=== PATIENT | male | born 1975 | race Caucasian/White ===

== ENCOUNTER 2020-11-18 04:32 | Emergency (ER) | payer OTHER, SELFPAY ==
--- OUTSIDE RECORDS SUMMARY | 2020-11-18 04:35 | XMS REPORT | Continuity of Care Document ---
:1975 Author Organization [facility] t Address [address] [place] [address] Care Team Providers Name Role Phone Long Duncan MD Attending Clinician Problems This patient has no known problems. Allergies, Adverse Reactions, Alerts This patient has no known allergies or adverse reactions. Medications This patient has no known medications. Procedures This patient has no known procedures. Encounters Start End Encounter Admission Attending Care Care Encounter Source Date/Time Date/Time Type Type Clinicians Facility Department ID 2020-07-26 2020-07-26 Office LIS Duncan [id number] 13:46:56 14:26:56 Visit Jonah Torres [id number] [place] [id number] Michela [phone] nal 092 Building Results This patient has no known results.
[2020-11-18] MEDS ORDERED: ONDANSETRON 4 MG/2 ML VIAL ONE (05:18)
[2020-11-18] MEDS ORDERED: MORPHINE 4 MG/ML SYR ONE (05:18)
[2020-11-18 05:34] LABS: Absolute Lymphocytes (CBC) 3.4 K/uL (0.7-4.9); Basophils % 1.2 % (0-1.3); Lymphocytes % 43.7 % (15.3-44.8); MPV 9.5 fL (7.6-11.3); RBC Red Blood Cell Count 5.36 M/uL (4.33-5.43)
[2020-11-18 05:42] LABS: Potassium 4.2 mmol/L (3.5-5.1)
[2020-11-18 05:57] LABS: Protime INR 0.89
--- NOTE | 2020-11-18 07:04 | EDPHYS ---
Physician Documentation [facility] Name: Yuval Mendoza Age: 45 yrs Sex: Male : 1975 Arrival Date: 11/18/2020 Time: 04:33 Bed 15 Private MD: ED Physician Nghia Loza HPI: 11/18 05:37 This 45 yrs old Male presents to ER via Ambulatory with complaints of Fall mh7 Injury, rib pain. 05:37 Details of fall: The patient fell from an upright position, while walking, and struck a mh7 concrete surface. Onset: The symptoms/episode began/occurred 1 week(s) ago. Associated injuries: The patient sustained injury to the chest, specifically the diaphragm, pain with breathing, pain with movement, tenderness. Severity of symptoms: At their worst the symptoms were moderate, 2 day(s) ago, in the emergency department the symptoms are unchanged. States that he slipped on icy ground after getting out of his truck and hit his left rib area on metal stair of his truck. No head injury or LOC.. Historical: - Allergies: 04:49 No Known Allergies; lp1 - Home Meds: 04:49 None [Active]; lp1 - PMHx: 04:49 Back pain; lp1 - PSHx: 04:49 back surgery; lp1 - Immunization history:: Adult Immunizations up to date. - Social history:: Smoking status: Patient reports the use of cigarette tobacco products, smokes two packs cigarettes per day. ROS: 05:37 Constitutional: Negative for fever, chills, and weight loss, Eyes: Negative for injury, mh7 pain, redness, and discharge, ENT: Negative for injury, pain, and discharge, Neck: Negative for injury, pain, and swelling, Back: Negative for injury and pain, : Negative for injury, bleeding, discharge, and swelling, MS/Extremity: Negative for injury and deformity, Skin: Negative for injury, rash, and discoloration, Neuro: Negative for headache, weakness, numbness, tingling, and seizure, Psych: Negative for depression, anxiety, suicide ideation, homicidal ideation, and hallucinations, Allergy/Immunology: Negative for hives, rash, and allergies, Endocrine: Negative for neck swelling, polydipsia, polyuria, polyphagia, and marked weight changes, Hematologic/Lymphatic: Negative for swollen nodes, abnormal bleeding, and unusual bruising. Exam: 05:37 Head/Face: Normocephalic, atraumatic. Eyes: Pupils equal round and reactive to light, mh7 extra-ocular motions intact. Lids and lashes normal. Conjunctiva and sclera are non-icteric and not injected. Cornea within normal limits. Periorbital areas with no swelling, redness, or edema. Neck: Trachea midline, no thyromegaly or masses palpated, and no cervical lymphadenopathy. Supple, full range of motion without nuchal rigidity, or vertebral point tenderness. No Meningismus. 05:37 Cardiovascular: Regular rate and rhythm with a normal S1 and S2. No gallops, murmurs, or rubs. Normal PMI, no JVD. No pulse deficits. Respiratory: Lungs have equal breath sounds bilaterally, clear to auscultation and percussion. No rales, rhonchi or wheezes noted. No increased work of breathing, no retractions or nasal flaring. Abdomen/GI: Soft, non-tender, with normal bowel sounds. No distension or tympany. No guarding or rebound. No evidence of tenderness throughout. Back: No spinal tenderness. No costovertebral tenderness. Full range of motion. Skin: Warm, dry with normal turgor. Normal color with no rashes, no lesions, and no evidence of cellulitis. MS/ Extremity: Pulses equal, no cyanosis. Neurovascular intact. Full, normal range of motion. Neuro: Awake and alert, GCS 15, oriented to person, place, time, and situation. Cranial nerves II-XII grossly intact. Motor strength 5/5 in all extremities. Sensory grossly intact. Cerebellar exam normal. Normal gait. Psych: Awake, alert, with orientation to person, place and time. Behavior, mood, and affect are within normal limits. 05:37 Constitutional: The patient appears in no acute distress, alert, awake, uncomfortable. 05:37 Chest/axilla: Inspection: normal, Palpation: tenderness, that is moderate, of the diaphragm, that totally reproduces the patient's complaints, Axilla: are normal, Lymph nodes: lymphadenopathy is not appreciated. Vital Signs: 04:46 BP 143 / 113; Pulse 99; Resp 18; Temp 98.2(TE); Pulse Ox 99% on R/A; Weight 131.54 kg lp1 (R); Height 6 ft. 1 in. (185.42 cm); Pain 8/10; 04:46 Body Mass Index 38.26 (131.54 kg, 185.42 cm) lp1 MDM: 07:00 Differential diagnosis: abrasion, contusion, fracture, strain. Data reviewed: vital [facility] signs, nurses notes, lab test result(s), CBC, electrolytes, radiologic studies, CT scan. Data interpreted: Pulse oximetry: on room air is 99 %. Interpretation: normal. Counseling: I had a detailed discussion with the patient and/or guardian regarding: the historical points, exam findings, and any diagnostic results supporting the discharge/admit diagnosis, lab results, radiology results, the need for outpatient follow up, to return to the emergency department if symptoms worsen or persist or if there are any questions or concerns that arise at home. Response to treatment: the patient's symptoms have markedly improved after treatment. 07:03 Patient medically screened. [facility] 11/18 05:00 Order name: Basic Metabolic Panel; Complete Time: 06:14 [facility] 11/18 05:00 Order name: CBC with Diff; Complete Time: 06:14 [facility] 11/18 05:00 Order name: Type And Screen; Complete Time: 06:55 [facility] 11/18 05:00 Order name: Protime (+inr); Complete Time: 06:14 [facility] 11/18 05:00 Order name: Ptt, Activated; Complete Time: 06:14 [facility] 11/18 05:46 Order name: CREATININE WHOLE BLOOD EDID 11/18 05:00 Order name: Labs collected and sent; Complete Time: 05:39 [facility] 11/18 05:21 Order name: Chest Abdomen Pelvis W Cont EDID 11/18 06:31 Order name: ABO/RH no charge; Complete Time: 06:55 EDMS Administered Medications: 05:05 Drug: morphine 4 mg Route: IVP; Site: right antecubital; ll2 05:05 Drug: Zofran (Ondansetron) 4 mg Route: IVP; Site: right antecubital; ll2 Disposition: 11/18/20 07:03 Discharged to Home. Impression: Fall-Mechanical, Chest Contusion, Abdominal Contusion. - Condition is Stable. - Discharge Instructions: Chest Contusion, [id number]. - Prescriptions for ketorolac 10 mg Oral tablet - take 1 tablet by ORAL route every 6 hours As needed not to exceed 40 mg in 24hrs; 15 tablet. Cyclobenzaprine 5 mg Oral Tablet - take 1 tablet by ORAL route 3 times per day As needed; 15 tablet. - Medication Reconciliation Form, Thank You Letter, Antibiotic Education, Prescription Opioid Use form. - Follow up: Private Physician; When: 1 - 2 days; Reason: Worsening of condition, Recheck today's complaints, Continuance of care, Re-evaluation by your physician. - Problem is an ongoing problem. - Symptoms have improved. Signatures: Dispatcher [employer] EDMS Ana Fabian, RN RN lp1 Johanna Nickerson RN RN ll2 Nghia Loza MD MD 7 Jenna Bedolla RN RN dm14 Corrections: (The following items were deleted from the chart) 05:21 05:01 Thorax W/ Con+CT.RAD.BRZ ordered. EDMS EDMS 05:21 05:01 Abdomen Pelvis W Con+CT.RAD.BRZ ordered. EDID EDMS 05:41 05:37 Details of fall: The patient fell mh7 7 07:23 07:03 11/18/2020 07:03 Discharged to Home. Impression: Fall-Mechanical; Chest dm14 Contusion; Abdominal Contusion. Condition is Stable. Forms are Medication Reconciliation Form, Thank You Letter, Antibiotic Education, Prescription Opioid Use. Follow up: Private Physician; When: 1 - 2 days; Reason: Worsening of condition, Recheck today's complaints, Continuance of care, Re-evaluation by your physician. Problem is an ongoing problem. Symptoms have improved. 7
--- NOTE | 2020-11-18 07:04 | ER ---
Nurse's Notes [facility] Name: Yuval Mendoza Age: 45 yrs Sex: Male : 1975 Arrival Date: 11/18/2020 Time: 04:33 Bed 15 Private MD: Diagnosis: Fall-Mechanical;Chest Contusion;Abdominal Contusion Presentation: 11/18 04:46 Chief complaint: Patient states: Reports fall about 5 days ago on ice, hit left side of lp1 back of step of truck, reports feeling a "pop" in front left side rib area, pain tolerable; reports pain has severely worsened now, pain on breathing, sneezing, coughing. Coronavirus screen: Client denies travel out of the [place] in the last 14 days. At this time, the client does not indicate any symptoms associated with coronavirus-19. Ebola Screen: No symptoms or risks identified at this time. Initial Sepsis Screen: Does the patient meet any 2 criteria? No. Patient's initial sepsis screen is negative. Does the patient have a suspected source of infection? No. Patient's initial sepsis screen is negative. Risk Assessment: Do you want to hurt yourself or someone else? Patient reports no desire to harm self or others. Onset of symptoms was November 12, 2020. 04:46 Method Of Arrival: Ambulatory lp1 04:46 Acuity: SANTI 3 lp1 Triage Assessment: 04:49 General: Appears uncomfortable, Behavior is appropriate for age. Pain: Complains of lp1 pain in left lateral anterior chest Noted to be guarding, resistant to movement. Neuro: No deficits noted. Respiratory: Airway is patent Respiratory effort is even. Derm: Skin is pink, warm \\T\\ dry. Historical: - Allergies: 04:49 No Known Allergies; lp1 - Home Meds: 04:49 None [Active]; lp1 - PMHx: 04:49 Back pain; lp1 - PSHx: 04:49 back surgery; lp1 - Immunization history:: Adult Immunizations up to date. - Social history:: Smoking status: Patient reports the use of cigarette tobacco products, smokes two packs cigarettes per day. Screenin:49 Abuse screen: Denies threats or abuse. Denies injuries from another. Nutritional lp1 screening: No deficits noted. Tuberculosis screening: No symptoms or risk factors identified. Fall Risk None identified. Assessment: 05:05 General: Appears in no apparent distress. uncomfortable, Behavior is calm, cooperative, ll2 appropriate for age. Pain: Complains of pain in chest and left lateral anterior chest. Neuro: Level of Consciousness is awake, alert, obeys commands, Oriented to person, place, time, situation. Cardiovascular: Patient's skin is warm and dry. Respiratory: Airway is patent Respiratory effort is even, unlabored, Respiratory pattern is regular, symmetrical. GI: No signs and/or symptoms were reported involving the gastrointestinal system. : No signs and/or symptoms were reported regarding the genitourinary system. EENT: No signs and/or symptoms were reported regarding the EENT system. Derm: Skin is intact, is healthy with good turgor, Skin is pink, warm \\T\\ dry. Musculoskeletal: Circulation, motion, and sensation intact. Range of motion: limited in left shoulder and left elbow. 07:20 Reassessment: Pt refused discharge paperwork and prescription. Refused to sign dm14 discharge. Pt very upset, states he is in pain and will go elsewhere. Vital Signs: 04:46 BP 143 / 113; Pulse 99; Resp 18; Temp 98.2(TE); Pulse Ox 99% on R/A; Weight 131.54 kg lp1 (R); Height 6 ft. 1 in. (185.42 cm); Pain 8/10; 04:46 Body Mass Index 38.26 (131.54 kg, 185.42 cm) lp1 ED Course: 04:33 Patient arrived in ED. am2 04:48 Triage completed. lp1 04:48 Arm band placed on. lp1 04:49 Nghia Loza MD is Attending Physician. 7 05:35 Johanna Nickerson, COLBY is Primary Nurse. ll2 05:37 Initial lab(s) drawn, by ia, sent to lab. Inserted saline lock: 20 gauge in right ll2 antecubital area, using aseptic technique. Blood collected. 06:13 Chest Abdomen Pelvis W Cont In Process Unspecified. EDMS Administered Medications: 05:05 Drug: morphine 4 mg Route: IVP; Site: right antecubital; ll2 05:05 Drug: Zofran (Ondansetron) 4 mg Route: IVP; Site: right antecubital; ll2 Outcome: 07:03 Discharge ordered by MD. fox 07:23 Patient left the ED. dm14 Signatures: Dispatcher [employer] EDMS Ana Fabian, RN RN lp1 Jania Jacobo Lacie, RN RN ll2 Nghia Loza MD MD mh7 Jenna Bedolla RN RN dm14
[2020-11-18 07:28] VITALS: BP 143/113; TEMP 98.2; O2SAT 99
--- NOTE | 2020-11-18 11:00 | RAD REPORT ---
EXAM DESCRIPTION: CT Chest, Abdomen and Pelvis With Intravenous Contrast CLINICAL HISTORY: TRAUMA TECHNIQUE: Axial computed tomography images of the chest, abdomen and pelvis with intravenous contra st. Sagittal and coronal reformatted images were created and reviewed. This CT exam was performed using one or more of the following dose reduction techniques: automated exposure control, adjustme nt of the mA and/or kV according to patient size, and/or use of iterative reconstruction technique. COMPARISON: No relevant prior studies available. FINDINGS: Limitations: None. CHEST: Lungs: There is a 6 mm pleural-based posterior right upper lobe nodule image 15/102. There is a 4 mm nodule in the right upper lobe image 23/102. Pleural space: Visualized portions appear normal. Heart: No abnormality noted. Mediastinum: No abnormality noted. Thyroid: No abnormality noted. ABDOMEN: Liver: No abnormality noted. Gallbladder and bile ducts: Small gallstones present. No ductal dilation. Pancreas: Homogeneous enhancement. No mass, inflammation or ductal dilation. Spleen: Visualized portions appear normal. Adrenals: Visualized portions appear normal. Kidneys and ureters: Homogeneous enhancement. No mass, hydronephrosis or stone. Tiny stones could be obscured by contrast. Stomach and bowel: No distension or mucosal thickening. No inflammation noted. PELVIS: Appendix: Well seen and appears normal. Bladder: No filling defects to suggest mass or large stone. No inflammation. Reproductive: Visualized portions appear normal. CHEST, ABDOMEN and PELVIS: Intraperitoneal space: No free air. No significant fluid collection. Retroperitoneal space: No abnormality noted. No fluid collection. Bones/joints: No acute fracture. There is lumbosacral degenerative disc disease. Chronic ursula ateral L5 pars defects present. Soft tissues: Visualized portions appear normal. Vasculature: No abnormality noted. No aortic aneurysm. Lymph nodes: No enlarged lymph nodes. IMPRESSION: 1. No traumatic changes identified. 2. There are 2 right pulmonary nodules. In the absence of a prior study to compare, Fleischner Society Guidelines for low-risk patients, no follow-up is necessary. For high-risk patients (smokin g history or other known risk factors) an optional chest CT at 12 months could be performed. Electronically signed by: Fabiola Mahoney MD 11/18/2020 6:37 AM [id number] Due to temporary technical issues with the PACS/Fluency reporting system, reports are being signed by the in house radiologist without review as a courtesy to ensure prompt reporting. The interpreting r adiologist is fully responsible for the content of the report.
== END 2020-11-18 07:23 | disposition home or self-care (01) ==
LOC: ER 04:32
DX: S20.212A Contusion of left front wall of thorax, initial encounter (principal); S30.1XXA Contusion of abdominal wall, initial encounter; W00.0XXA Fall on same level due to ice and snow, initial encounter; Y93.01 Activity, walking, marching and hiking; Y92.89 Other specified places as the place of occurrence of the external cause; F17.210 Nicotine dependence, cigarettes, uncomplicated
CPT/HCPCS: 36415; 71260; 74177; 80048; 82565; 85025; 85610; 85730; 86850; 86900; 86901; 96374; 96375; 99284; J2405; Q9967

== ENCOUNTER 2025-02-15 13:40 | Emergency (ER) | payer BC, SELFPAY ==
[2025-02-15 14:12] LABS: Absolute Basophils 0.1 K/uL (0-0.5); Absolute Eosinophils 0.1 K/uL (0-0.5); Absolute Monocytes 0.4 K/uL (0.1-1.3); Absolute Neutrophil 5.9 K/uL (1.8-8.0); Basophils % 0.9 % (0-1.3); Eosinophils % 1.1 % (0-4.4); Hematocrit 44.9 % (39.6-49.0); Hemoglobin 15.4 g/dL (13.6-17.9); Lymphocytes % 31.3 % (15.3-44.8); MCH 30.5 pg (27.0-35.0); MCHC 34.3 g/dL (32.0-36.0); MPV 8.6 fL (7.6-11.3); Monocytes % 4.4 % (3.3-12.3); Neutrophils % 62.3 % (41.7-73.7); Platelets 235 thou/uL (152-406); RBC Red Blood Cell Count 5.05 M/uL (4.33-5.43); Red Cell Distribution Width 14.5 % (12.1-15.2)
--- NOTE | 2025-02-15 14:34 | RAD REPORT ---
EXAMINATION: ONE VIEW CHEST XR CLINICAL INDICATION: CHEST PAIN TECHNIQUE: Frontal chest projection is submitted. Examination is limited by patient positioning and t echnique. COMPARISON: No prior exam. FINDINGS: The lungs are well inflated and clear. The heart is upper limit of normal in size. No displaced fract ures identified. IMPRESSION: No acute intrathoracic abnormalities.
[2025-02-15 14:46] LABS: PT Prothrombin Time 11.9 SECONDS (10-13.0); Protime INR 1.05
[2025-02-15 14:54] LABS: ALT/SGPT 18 U/L (16-61); Albumin 3.4 g/dL (3.4-5.0); Albumin/Globulin Ratio 0.9 (1.1-1.8); Alkaline Phosphatase 82 U/L (45-117); Anion Gap 8.5 mEq/L (5.0-15.0); BUN Blood Urea Nitrogen 13 mg/dL (7-18); Bicarbonate 24 mEq/L (21-32); Bilirubin Direct 0.2 mg/dL (0-0.2); Bilirubin Indirect, Calculated 0.3 mg/dL (0.2-0.8); Bilirubin Total 0.5 mg/dL (0.2-1.0); Globulin 3.7 g/dL (2.3-3.5); Glomerular Filtration Rate 88 ml/min (=/>90); Glucose Level 149 mg/dL (74-106); Potassium 3.5 mEq/L (3.5-5.1); Protein, Total 7.1 g/dL (6.4-8.2); Sodium Level 137 mEq/L (136-145)
[2025-02-15 14:57] LABS: AST/SGOT < 10 U/L (15-37)
[2025-02-15 15:51] LABS: NT PRO-BNP 97 pg/mL (<125); Troponin High Sensitivity 3.4 pg/mL (<58.9)
--- NOTE | 2025-02-15 16:05 | EDPHYS ---
Physician Documentation [facility] Name: Yuval Mendoza Age: 49 yrs Sex: Male : 1975 Arrival Date: 02/15/2025 Time: 13:40 Bed 16 Private MD: ED Physician Justa Medina HPI: 02/15 13:50 This 49 yrs old Male presents to ER via Unassigned with complaints of Chest Pain. sb4 13:51 Intermittent chest pain and shortness of breath of the past 2 weeks. States it got sb4 significantly worse today when he was loading stuff into his car. States he also feels very dizzy. Reports he had a heart attack and subsequent stent placed in his LAD about 6 months ago. Is on Brilinta and a statin but is not sure of other medications. Is a pack per day smoker. Historical: - Allergies: 13:52 No Known Allergies; ap3 - PMHx: 13:52 Back pain; Myocardial infarction; ap3 - Immunization history:: Client reports having NOT received the Covid vaccine. Flu vaccine is not up to date. - Infectious Disease History:: Denies. - Social history:: Smoking status: Patient reports the use of cigarette tobacco products, smokes one pack cigarettes per day. ROS: 13:51 Constitutional: Negative for fever, chills, and weight loss, sb4 13:51 Cardiovascular: Positive for chest pain, 13:51 Respiratory: Positive for shortness of breath, 13:51 Neuro: Positive for dizziness, 13:51 All other systems are negative, Exam: 13:51 Head/Face: Normocephalic, atraumatic. Eyes: Extra-ocular motions intact. Periorbital sb4 areas with no swelling, redness, or edema. ENT: Mucous membranes moist. Cardiovascular: Regular rate and rhythm with a normal S1 and S2. Respiratory: No increased work of breathing, no retractions or nasal flaring. Abdomen/GI: Soft, non-tender, no distension. Skin: Warm, dry with normal turgor. Normal color with no rashes, no lesions, and no evidence of cellulitis. 13:51 Constitutional: The patient appears alert, awake, agitated, obese, uncomfortable, Vital Signs: 13:50 BP 117 / 83; Pulse 92; Resp 17; Temp 98.2; Pulse Ox 99% on R/A; Weight 127.01 kg; ap3 Height 6 ft. 0 in. ; Pain 5/10; 15:12 BP 103 / 61; Pulse 76; Resp 16; Pulse Ox 98% on R/A; jb4 16:52 BP 110 / 69; Pulse 76; Resp 16; Pulse Ox 97% on R/A; jb4 13:50 Body Mass Index 37.97 (127.01 kg, 182.88 cm) ap3 13:50 Pain Scale: Adult ap3 MDM: 13:50 Medical Screening Exam initiated sb4 13:53 Differential diagnosis: abnormal EKG, acute myocardial infarction, anxiety, coronary sb4 artery disease chest wall pain, stable angina, unstable angina. 16:09 The patient was not given aspirin in the Emergency Department. Not indicated due to sb4 patient's past medical history. Data reviewed: vital signs, nurses notes, lab test result(s), EKG, radiologic studies, and as a result, I will discharge patient. Consideration of Admission/Observation Escalation of care including admission/observation considered. Scoring Tools HEART Score: History: ECG: Age: Risk Factors: > or = 3 Risk factors for atherosclerotic disease (2), Troponin: Total Score = 4. 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 Special discussion: Based on the patient's history, exam, and Dx evaluation, there is no indication for emergent intervention or inpatient Tx. It is understood by the patient/guardian that if the Sx's persist or worsen they need to return immediately for re-evaluation. ED course: patient reports feeling better, does not want to stay in hospital. will follow up with cardiology outpatient or return to ED for any new or worsening symptoms. 16:10 Care significantly affected by the following chronic conditions: Hypertension, Obesity. 4 02/15 13:50 Order name: Basic Metabolic Panel; Complete Time: 16:[address] [facility] 02/15 13:50 Order name: CBC with Diff; Complete Time: 14:[address] [facility] 02/15 13:50 Order name: LFT's; Complete Time: 16:00 sb4 02/15 13:50 Order name: Magnesium; Complete Time: 16:00 sb4 02/15 13:50 Order name: NT PRO-BNP; Complete Time: 16:00 sb4 02/15 13:50 Order name: PT-INR; Complete Time: 14:47 sb4 02/15 13:50 Order name: Troponin HS; Complete Time: 16:00 sb4 02/15 13:50 Order name: XRAY Chest (1 view); Complete Time: 14:37 sb4 02/15 13:50 Order name: Cardiac monitoring; Complete Time: 13:51 sb4 02/15 13:50 Order name: EKG - Nurse/Tech; Complete Time: 13:51 sb4 02/15 13:50 Order name: IV Saline Lock; Complete Time: 14:04 sb4 02/15 13:50 Order name: Labs collected and sent; Complete Time: 14:04 sb4 02/15 13:50 Order name: O2 Per Protocol; Complete Time: 13:51 sb4 02/15 13:50 Order name: O2 Sat Monitoring; Complete Time: 13:51 sb4 EC:51 Rate is 92 beats/min. Rhythm is regular, Normal Sinus Rhythm. ME interval is normal at sb4 164 msec. QRS interval is normal at 92 msec. QT interval is normal at 360 msec. No Q waves. T waves are Normal. No ST changes noted. Clinical impression: No evidence of ischemia. Interpreted by me. Reviewed by me. Administered Medications: No medications were administered Disposition Summary: 02/15/25 16:05 Discharge Ordered Notes: Location: Home sb4 Problem: new sb4 Symptoms: have improved sb4 Condition: Stable sb4 Diagnosis - Chest pain, unspecified sb4 Followup: sb4 - With: Channing Fowler MD - When: 1 week - Reason: Further diagnostic work-up, Recheck today's complaints, Re-evaluation by your physician Discharge Instructions: - Discharge Summary Sheet sb4 - Nonspecific Chest Pain, Adult, [id number] sb4 Forms: - Patient Portal Instructions sb4 - Leadership Thank You Letter sb4 Signatures: Dispatcher MedHoJania Worley RN RN ap3 Malu Lambert PA-C PAGris sb4 Corrections: (The following items were deleted from the chart) 13:51 13:51 BASIC METABOLIC PANEL+C.LAB.BRZ ordered. EDMS EDMS 13:51 13:51 CBC+H.LAB.BRZ ordered. EDMS EDMS 13:51 13:51 HEPATIC FUNCTION+C.LAB.BRZ ordered. EDMS EDMS 13:51 13:51 MAGNESIUM+C.LAB.BRZ ordered. EDMS EDMS 13:51 13:51 PROBNP+C.LAB.BRZ ordered. EDMS EDMS 13:51 13:51 PROTIME (+INR)+COAG.LAB.BRZ ordered. EDMS EDMS 13:51 13:51 Troponin High Sensitivity+C.LAB.BRZ ordered. EDMS EDMS 13:51 13:51 Chest Single View+RAD.RAD.BRZ ordered. EDMS EDMS
--- NOTE | 2025-02-15 16:05 | ER ---
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 patient currently rates his pain as a 5/10 on the pain scale. Coronavirus screen: At this time, the client does not indicate any symptoms associated with coronavirus-19. Ebola Screen: No symptoms or risks identified at this time. Initial Sepsis Screen: Does the patient meet any 2 criteria? No. Patient's initial sepsis screen is negative. Does the patient have a suspected source of infection? No. Patient's initial sepsis screen is negative. Risk Assessment: Do you want to hurt yourself or someone else? Patient reports no desire to harm self or others. Onset of symptoms was February 15, 2025 at 13:15. 13:50 Method Of Arrival: Ambulatory ap3 13:50 Acuity: SANTI 2 ap3 Triage Assessment: 13:52 General: Appears in no apparent distress. Behavior is cooperative. Pain: Complains of ap3 pain in chest Pain currently is 5 out of 10 on a pain scale. Pain began 30 min ago. Neuro: Level of Consciousness is awake, alert, obeys commands, Oriented to person, place, time, situation, Appropriate for age Speech is normal. Neuro: Reports dizziness. Cardiovascular: Reports chest pain, shortness of breath. Respiratory: Airway is patent Respiratory effort is even, unlabored, Respiratory pattern is regular, symmetrical. Historical: - Allergies: 13:52 No Known Allergies; ap3 - PMHx: 13:52 Back pain; Myocardial infarction; ap3 - Immunization history:: Client reports having NOT received the Covid vaccine. Flu vaccine is not up to date. - Infectious Disease History:: Denies. - Social history:: Smoking status: Patient reports the use of cigarette tobacco products, smokes one pack cigarettes per day. Screenin:53 [facility] ED Fall Risk Assessment (Adult) History of falling in the last 3 months, ap3 including since admission No falls in past 3 months (0 pts) Confusion or Disorientation No (0 pts) Intoxicated or Sedated No (0 pts) Impaired Gait No (0 pts) Mobility Assist Device Used No (0 pt) Altered Elimination No (0 pt) Score/Fall Risk Level 0 - 2 = Low Risk Oriented to surroundings, Maintained a safe environment, Educated pt \T\ family on fall prevention, incl call for assistance when getting out of bed, Assessed \T\ reinforced patient's understanding of fall precautions, Hourly rounding (assess needs \T\ fall precautionary measures) done, Used ambulatory aids as needed (educated on \T\ assisted with). Abuse screen: Denies threats or abuse. Nutritional screening: No deficits noted. Tuberculosis screening: No symptoms or risk factors identified. Assessment: 13:54 Pain: Pain does not radiate. ap3 15:11 General: Appears in no apparent distress. comfortable, Behavior is calm, cooperative, jb4 appropriate for age. Pain: Complains of pain in chest Pain does not radiate. Neuro: Level of Consciousness is awake, alert, obeys commands, Oriented to person, place, time, situation. Cardiovascular: Patient's skin is warm and dry. Respiratory: Airway is patent Respiratory effort is even, unlabored, Respiratory pattern is regular, symmetrical. Derm: Skin is intact, Skin is pink, warm \T\ dry. Musculoskeletal: Circulation, motion, and sensation intact. Range of motion: intact in all extremities. 16:52 Reassessment: Patient appears in no apparent distress at this time. No changes from jb4 previously documented assessment. Patient is alert, oriented x 3, equal unlabored respirations, skin warm/dry/pink. Vital Signs: 13:50 BP 117 / 83; Pulse 92; Resp 17; Temp 98.2; Pulse Ox 99% on R/A; Weight 127.01 kg; ap3 Height 6 ft. 0 in. ; Pain 5/10; 15:12 BP 103 / 61; Pulse 76; Resp 16; Pulse Ox 98% on R/A; jb4 16:52 BP 110 / 69; Pulse 76; Resp 16; Pulse Ox 97% on R/A; jb4 13:50 Body Mass Index 37.97 (127.01 kg, 182.88 cm) ap3 13:50 Pain Scale: Adult ap3 ED Course: 13:41 Patient arrived in ED. mr 13:49 Malu Lambert PA-C is PHCP. sb4 13:49 Justa Medina MD is Attending Physician. sb4 13:51 EKG done, by ED staff, reviewed by Malu Lambert PA-C. am7 13:52 Triage completed. ap3 13:53 Patient has correct armband on for positive identification. Bed in low position. Call ap3 light in reach. Side rails up X 1. Client placed on continuous cardiac and pulse oximetry monitoring. NIBP monitoring applied. athletic monitor on. Pulse ox on. NIBP on. 13:54 Patient maintains SpO2 saturation greater than 95% on room air. ap3 13:54 Arm band placed on right wrist. ap3 14:05 Inserted saline lock: 20 gauge in right antecubital area, using aseptic technique. am7 Blood collected. Flushed with 10 mL NS. 14:24 XRAY Chest (1 view) In Process Unspecified. EDMS 16:05 Channing Fowler MD is Referral Physician. sb4 16:52 No provider procedures requiring assistance completed. IV discontinued, intact, jb4 bleeding controlled, No redness/swelling at site. Pressure dressing applied. 16:52 Provided Education on: discharge instructions.. jb4 Administered Medications: No medications were administered Medication: 16:52 VIS not applicable for this client. jb4 Outcome: 16:05 Discharge ordered by . sb4 16:52 Discharged to home ambulatory, with friend, jb4 16:52 Condition: stable 16:52 Discharge instructions given to patient, Instructed on discharge instructions, follow up and referral plans. Demonstrated understanding of instructions, follow-up care, 16:53 Patient left the ED. jb4 Signatures: Dispatcher [employer] EDUT Thais Castillo, Reg Reg Dannie Santiago, RN RN jb4 Jania Rodriguez, RN RN Malu Gloria PA-C PA-C sb4 Kae Madsen am7
[2025-02-15 17:31] VITALS: TEMP 98.2
[2025-02-15 17:34] VITALS: BP 110/69; O2SAT 97
--- NOTE | 2025-02-20 12:36 | EKG ---
Test Date: 2025-02-15 Test Time: 13:47:41 Production Control Coordinating Clerk: AM MEASUREMENT RESULTS: Intervals: Rate: 92 WV: 164 QRSD: 92 QT: 360 QTc: 445 [place]: P: 54 WV: 164 QRS: 56 T: 38 INTERPRETIVE STATEMENTS: Normal sinus rhythm Cannot rule out Anterior infarct, age undetermined Abnormal ECG No previous ECG available for comparison Electronically Signed On 02-20-25 12:27:08 CDT by Iggy Chris
== END 2025-02-15 16:53 | disposition home or self-care (01) ==
LOC: ER 13:40
DX: R07.9 Chest pain, unspecified (principal); R42 Dizziness and giddiness; I25.2 Old myocardial infarction; F17.210 Nicotine dependence, cigarettes, uncomplicated; Z95.818 Presence of other cardiac implants and grafts
CPT/HCPCS: 36415; 71045; 80048; 80076; 83735; 83880; 84484; 85025; 85610; 93005; 99284